=== PATIENT | female | born 1980 | race Caucasian/White ===

== ENCOUNTER 2017-09-23 22:23 | Emergency (ER) | payer OTHER ==
[~2017-09-23] VITALS: Ht 157.5 cm; Wt 114.8 kg
[2017-09-24 00:03] LABS: APPEARANCE CLOUDY ((CLEAR)); BILIRUBIN NEGATIVE; BLOOD MODERATE; COLOR AMBER ((YELLOW)); GLUCOSE (STRIP) NEGATIVE; KETONES 5; LEUKOCYTES NEGATIVE; NITRITE NEGATIVE; PROTEIN (STRIP) 100; UROBILINOGEN 0.2 MG/DL (0.2-1.0)
[2017-09-24 00:14] LABS: BACTERIA RARE /HPF; EPITHELIAL CELLS 1+ /HPF; HYALINE CASTS 0-5 /LPF; MUCUS 2+ /LPF; RED BLOOD CELLS 15-20 /HPF (0-5); UCUL ADDED? NO; WHITE BLOOD CELLS 0-5 /HPF (0-5)
[2017-09-24 00:19] LABS: HEMATOCRIT 41.5 % (36.0-46.0); HEMOGLOBIN 13.4 G/DL (11.9-15.5); MCH 26.7 PG (29.0-34.0); MCHC 32.3 G/DL (30.0-36.0); MCV 82.8 FL (83-99); PLATELET COUNT 281 K/uL (156-360); RBC DIS.WIDTH-SD 42.2 % (39-53); RED BLOOD COUNT 5.01 M/uL (3.80-5.20); WHITE BLOOD COUNT 15.4 K/uL (4.1-10.2)
[2017-09-24 00:44] LABS: ALBUMIN 3.9 g/dL (3.2-4.8); CHLORIDE 104 mEq/L (99-109); POTASSIUM 3.6 mEq/L (3.7-5.4); SODIUM 135 mEq/L (136-147)
[2017-09-24 00:47] LABS: GLUCOSE 126 mg/dL (70-99); TOTAL PROTEIN 7.2 g/dL (6.4-8.3)
[2017-09-24 00:49] LABS: TOTAL BILIRUBIN 0.7 mg/dL (0.0-1.0)
[2017-09-24 00:50] LABS: ALKALINE PHOSPHATASE 112 IU/L (3-129); CREATININE 0.9 mg/dL (0.6-1.3); GFR ESTIMATE (CALCULATED) > 59 mL/min/
[2017-09-24 00:51] LABS: UREA NITROGEN (BUN) 14 mg/dL (9-23)
[2017-09-24 00:52] LABS: AST (GOT) 15 IU/L (2-34)
[2017-09-24 00:53] LABS: ALT (GPT) 19 IU/L (3-49)
[2017-09-24 00:54] LABS: LIPASE 13 U/L (1.0-51.0)
[2017-09-24 01:00] LABS: QUANTITATIVE HCG < 4.0 MIU/ML
[2017-09-24 01:11] LABS: TROP-I INTERPRETATION NEGATIVE; TROPONIN-I 0.01 ng/mL (0.0-0.30)
[2017-09-24] MEDS ORDERED: BENTYL20 MG PO (02:04)
[2017-09-24] MEDS ORDERED: ZOFRAN ODT4 MG PO (02:04)
[2017-09-24 03:00] VITALS: BP 123/82
== END 2017-09-24 03:00 | disposition home or self-care (01) ==
LOC: EME 22:23
DX: R11.2 Nausea with vomiting, unspecified (principal); R19.7 Diarrhea, unspecified; J06.9 Acute upper respiratory infection, unspecified; S00.81XA Abrasion of other part of head, initial encounter; W19.XXXA Unspecified fall, initial encounter; R55 Syncope and collapse; F32.9 Major depressive disorder, single episode, unspecified; F41.9 Anxiety disorder, unspecified; J45.909 Unspecified asthma, uncomplicated; K21.9 Gastro-esophageal reflux disease without esophagitis; Z88.1 Allergy status to other antibiotic agents; Z88.6 Allergy status to analgesic agent
CPT/HCPCS: 70450; 74177; 80053; 81003; 83690; 84484; 84702; 85027; 87086; 93005; 99281; 99285; J2405; J7030